=== PATIENT | female | born 1990 | race Caucasian/White ===

== ENCOUNTER 2016-09-23 14:23 | Inpatient (IN) | payer MEDICAID ==
[2016-09-23] MEDS ORDERED: Sodium Chloride 0.9% 10 ML Syringe FLUSH PRN (14:31)
[2016-09-23] MEDS ORDERED: Misoprostol 400 MCG (4 X 100 MCG TAB) RECTAL PRN (14:31)
[2016-09-23] MEDS ORDERED: Carboprost Tromethamine 250 MCG/1 ML Amp IM PRN (14:31)
[2016-09-23] MEDS ORDERED: Lidocaine 1% 30 ML SDV INJECT PRN (14:31)
[2016-09-23] MEDS ORDERED: Methylergonovine 0.2 MG/1 ML Amp IM PRN (14:31)
[2016-09-23] MEDS ORDERED: Ondansetron 4 MG/2 ML SDV IV PRN (14:31)
[2016-09-23] MEDS ORDERED: Lactated Ringers 500 ML IV ONE (14:31)
--- NOTE | 2016-09-23 15:22 | PCM.PREANE ---
Preanesthetic Assessment - Procedure Proposed Procedure: Term Labor for scheduled for vaginal delivery - Anesthesia/Transfusion/Family Hx Anesthesia History: Prior Anesthesia Without Reaction Family History of Anesthesia Reaction: No Transfusion History: No Prior Transfusion(s) Intubation History: Unknown - Review of Systems General: No Symptoms Pulmonary: No Symptoms Cardiovascular: No Symptoms Gastrointestinal: No symptoms Neurological: No Symptoms Other: Reports: None - Physical Assessment NPO Status Date: 09/23/16 NPO Status Time: 15:19 Pulse: 88 O2 Sat by Pulse Oximetry: 99 Respiratory Rate: 20 Blood Pressure: 128/76 Temperature: 97.6 F Height: 1.73 m Weight: 68.039 kg ASA Class: 2 Mental Status: Alert & Oriented x3 Dentition: Reports: Normal Dentition ROM/Head Extension: Full Lungs: Clear to auscultation Cardiovascular: Regular Rate, Regular Rhythm - Lab Values: Laboratory Last Values WBC 8.3 10^3/uL (5.0-10.0) 09/23/16 14:44 RBC 4.46 10^6/uL (4.2-5.4) 09/23/16 14:44 Hgb 11.0 g/dL (12.0-16.0) L 09/23/16 14:44 Hct 34.0 % (37.0-47.0) L 09/23/16 14:44 MCV 76.2 fL (80-100) L 09/23/16 14:44 MCH 24.7 pg (27.0-34.0) L 09/23/16 14:44 MCHC 32.4 g/dL (33.0-35.0) L 09/23/16 14:44 Plt Count 222 10^3/uL (150-450) 09/23/16 14:44 - Allergies Allergies/Adverse Reactions: Allergies Allergy/AdvReac Type Severity Reaction Status Date / Time ciprofloxacin Allergy Cannot Verified 09/20/16 19:20 Remember latex Allergy Rash Verified 09/20/16 19:20 - Blood Blood Available: No Product(s) Available: None - Acknowledgements Anesthesia Type Planned: Spinal Pt an Appropriate Candidate for the Planned Anesthesia: Yes Alternatives and Risks of Anesthesia Discussed w Pt/Guardian: Yes Pt/Guardian Understands and Agrees with Anesthesia Plan: Yes Additional Comments: R/B of Intrathecal spinal for labor pain management discussed with patient. Chart is reviewed. Patient is pain free now and will wait until the pain is no longer tolerated. Anesthesia consent is signed. PreAnesthesia Questionnaire - Past Health History Medical/Surgical History: Denies Medical/Surgical History HEENT History: Reports: None Cardiovascular History: Reports: None Respiratory History: Reports: None Gastrointestinal History: Reports: None Genitourinary History: Reports: UTI, Recurrent, Other (See Below) Other Genitourinary History: BV [employer]NAGER History: Reports: , Spontaneous Musculoskeletal History: Reports: None Neurological History: Reports: None Psychiatric History: Reports: None, Depression Endocrine/Metabolic History: Reports: None Hematologic History: Reports: Anemia Immunologic History: Reports: None Oncologic (Cancer) History: Reports: None Dermatologic History: Reports: None - Infectious Disease History Infectious Disease History: Reports: None Other Infectious Disease History: neg. cultures September 2014 - Past Surgical History Head Surgeries/Procedures: Reports: None HEENT Surgical History: Reports: Other (See Below) GI Surgical History: Reports: Cholecystectomy - SUBSTANCE USE Smoking Status *Q: Current Every Day Smoker Tobacco Use Within Last Twelve Months: Cigarettes Second Hand Smoke Exposure: No Days Per Week of Alcohol Use: 0 Recreational Drug Use History: No - HOME MEDS Home Medications: Home Meds Vit No.130/Iron/FA [ Vitamins] 1 each PO DAILY 03/26/15 [ History] - CURRENT (IN HOUSE) MEDS Current Meds: Current Medications Acetaminophen (Tylenol) 650 mg PO Q4H PRN PRN Reason: Pain (Mild 1-3) and fever Carboprost Tromethamine (Hemabate Ds) 250 mcg IM ASDIRECTED PRN PRN Reason: HEMORRHAGE Lactated Ringer's (Ringers, Lactated) 500 mls @ 500 mls/hr IV .BOLUS ONE Stop: 09/23/16 15:30 Lactated Ringer's (Ringers, Lactated) 1,000 mls @ 125 mls/hr IV ASDIRECTED JESS Lidocaine HCl (Xylocaine-Mpf 1%) 10 ml INJECT ASDIRECTED PRN PRN Reason: Perineal Repair Methylergonovine Maleate (Methergine) 0.2 mg IM ASDIRECTED PRN PRN Reason: Hemorrhage Misoprostol (Cytotec) 800 mcg RECTAL ASDIRECTED PRN PRN Reason: Hemorrhage Ondansetron HCl (Zofran) 4 mg IV Q4H PRN PRN Reason: Nausea/Vomiting Sodium Chloride (Saline Flush) 10 ml FLUSH ASDIRECTED PRN PRN Reason: Keep Vein Open
[2016-09-23] MEDS: Lactated Ringers 1,000 ML IV SCH ×2 (18:32→23:55)
[2016-09-23] MEDS: Oxytocin/Normal Saline 30 UNIT/500 ML BAG IV SCH (18:32)
[2016-09-23] MEDS ORDERED: fentaNYL 100 MCG/2 ML SDV ONE (22:32)
--- NOTE | 2016-09-23 23:00 | PCM.PRNOTE ---
- Free Text/Narrative Note: Patient Id'd chart reviewed in sitting positions sterile prep with betadine and draped. L3-4 space id'd, skin wheel with 1% Lidocaine. 24 G pencan spinal needle advanced into SA space via an 18 G introducer. negative blood/ parasthesia positive CSF. 6 mg hyperbaric Marcaine, 30 mcg fentanyl, 20 mcg sufentanyl and epinepherine wash injected into SA space positive swirlX2. BP / 125/72, [id number] 98% on RA, Temp 97.4 immediate pain relief is achieved
[2016-09-24] MEDS: Lactated Ringers 1,000 ML IV SCH (04:50)
[2016-09-24] MEDS ORDERED: Simethicone 80 MG Tab.Chew PO PRN (04:54)
[2016-09-24] MEDS ORDERED: Sodium Chloride 0.9% 10 ML Syringe FLUSH PRN (04:54)
[2016-09-24] MEDS ORDERED: Zolpidem 5 MG Tab PO PRN (04:54)
[2016-09-24] MEDS ORDERED: Benzocaine/Menthol 20%-0.5% Spray 56 GM Canister TOP PRN (04:54)
[2016-09-24] MEDS ORDERED: Oxytocin 10 Units/1 ML SDV IM PRN (04:54)
[2016-09-24] MEDS: Ibuprofen 800 MG Tab PO PRN ×2 (05:54→15:51)
[2016-09-24] MEDS: Oxytocin/Normal Saline 30 UNIT/500 ML BAG IV SCH (06:14)
[2016-09-24] MEDS: Prenatal Multivitamin with Calcium/Folic Acid/Iron Tab PO SCH (08:45)
[2016-09-24] MEDS: Docusate Sodium 100 MG Cap PO PRN (08:45)
[2016-09-24] MEDS: Acetaminophen 325 MG Tab PO PRN ×3 (08:46→17:45)
--- NOTE | 2016-09-24 10:38 | PN ---
DATE: 09/24/2016 SUBJECTIVE: The patient is comfortable, status post intrathecal. Pitocin is currently at 14 milliunits per minute. OBJECTIVE: heart tones have been in the 120s range with some minimal variability noted. Vaginal exam does reveal an acceleration. She is found to be 5.5 to 6 cm, 85% to 90% effaced, vertex suspected with caput noted. IUPC placed after discussion with the patient. ASSESSMENT/PLAN: Intrauterine at 41 weeks confirmed by 21 and 6/7 weeks ultrasound with risk factors of impaired glucose tolerance, single umbilical artery, history of maternal anemia in a G6, P4-1-0-1, now with protracted disorder of dilation, status post artificial rupture of membranes, Pitocin augmentation, and IUPC as above. We will continue to follow clinically and closely. Follow for MVUs. Did discuss plans with the patient. We will follow maternal status closely as well with heart tone monitoring. [facility] /[id number]
--- NOTE | 2016-09-24 10:43 | PCM.POSTAN ---
POST ANESTHESIA ASSESSMENT - MENTAL STATUS Mental Status: alert, oriented - VITAL SIGNS Pulse Rate: 68 SaO2: 99 Resp Rate: 18 Blood Pressure: 122/76 Temperature: 97.1 F - RESPIRATORY Respiratory Status: respiratory rate WNL, airway patent, O2 saturation stable - CARDIOVASCULAR CV Status: pulse rate WNL, blood pressure stable - GASTROINTESTINAL GI Status: no symptoms - PAIN Pain Score: 0 - POST OP HYDRATION Hydration Status: adequate & stable - OBSERVATIONS Free Text/Narrative:: Patient is sitting in bed. Recovered from her spinal narcotic and ambulating without any issue. Pleased with the outcome of anesthetic plan of care.
--- NOTE | 2016-09-24 10:49 | PN ---
DATE: 09/23/2016 SUBJECTIVE: The patient's contractions are getting stronger. She is on Pitocin at 12 milliunits per minute. OBJECTIVE: heart tones in the 130s range, felt to be reassuring. Tocometer reveals contractions every 2-4 minutes. Vaginal exam reveals her to be 5 cm, 85% to 90% effaced, -2 station, vertex suspected. ASSESSMENT AND PLAN: Intrauterine at 41 weeks, confirmed with 21- 6/7th weeks' ultrasound, with single umbilical artery, impaired glucose tolerance, maternal anemia. Now, status post NST, artificial rupture of membranes, Pitocin augmentation. Requesting something for pain. We will get her the intrathecal, and follow clinically and closely thereafter. The patient understands and agrees with the above treatment plan. [facility] /[id number]
--- NOTE | 2016-09-24 10:54 | PN ---
DATE: 09/23/2016 Patient's history and physical has been done through [facility]. Please see scanned notes within the chart in regard to this. For this, records were called, reviewed, and supplemented by patient history as well. REVIEW OF SYSTEMS: Otherwise reviewed and felt to be noncontributory as well. Please see EPIC notes for further details. [facility] /[id number]
[2016-09-24] MEDS ORDERED: fentaNYL 100 MCG/2 ML SDV ITHECAL ONE (12:38)
--- NOTE | 2016-09-24 13:26 | DEL ---
DATE: 09/24/2016 PREOPERATIVE DIAGNOSES: 1. Intrauterine 41-1/7th weeks, confirmed with 21-6/7th-week ultrasound. 2. Impaired glucose tolerance. 3. Single umbilical artery. 4. Maternal anemia with hemoglobin of 11 upon admission. 5. History of LEEP. 6. History of depression. 7. 6, para 4-0-1-4. 8. Meconium-stained fluid first noted in the second stage of labor. POSTOPERATIVE DIAGNOSES: 1. Intrauterine 41-1/7th weeks, confirmed with 21-6/7th-week ultrasound-delivered. 2. Impaired glucose tolerance. 3. Single umbilical artery. 4. Maternal anemia with hemoglobin of 11 upon admission. 5. History of LEEP. 6. History of depression. 7. 6, para 4-0-1-4. 8. Meconium-stained fluid, first noted in the second stage of labor. 9. REESE presentation. 10.Second-degree perineal laceration-repaired. PROCEDURES PERFORMED: NST, artificial rupture of membranes, Pitocin augmentation, IUPC on 09/23/2016, with continued Pitocin augmentation through 09/24/2016, with spontaneous vaginal delivery on 09/24/2016. Second-degree perineal laceration-repaired. ANESTHESIA/ANALGESIA: The patient did receive an intrathecal in the first stage of labor. ESTIMATED BLOOD LOSS: 400 mL. FINDINGS: Female, scores of 8 and 9, weight pending. SUMMARY OF EVENTS: The patient is a 25-year-old, G6, P4-0-1-4 intrauterine at 41 weeks upon admission confirmed with 21-6/7th-week ultrasound, which was on 09/23/2016, who underwent the above procedures. She had a protracted disorder of dilation, required IUPC placement after she had her intrathecal, continued with Pitocin augmentation, she was subsequently found to be complete, and I was called to the room. I donned sterile gown and gloves and subsequently with the patient pushing with contractions, vertex was delivered in the REESE presentation, followed by anterior and posterior shoulder as well as rest of the infant without difficulty. Meconium-stained fluid was noted during this time. Vigorous cry was noted. Mouth and nares were suctioned. Cord was doubly clamped and cut. was resuscitated on mother's abdomen/chest. Then, approximately 10 mL of cord blood was obtained for labs. Placenta then delivered with gentle cord traction and fundal massage within 5 to 10 minutes. Single umbilical artery was noted. Perineum, vagina, and perirectal areas were examined and noted to have a second-degree perineal laceration that was anesthetized in the usual fashion using 1% lidocaine without epinephrine and repaired in the usual fashion using 3-0 Vicryl. Mother and infant are currently stable at the time of dictation. [facility] /[id number]
--- NOTE | 2016-09-24 13:29 | OBOUT ---
DATE: 09/23/2016 DATE AND TIME OF NST: Date: 09/23/2016. Time: 1451 hours to 1511 hours. REASON FOR NST: 1. Intrauterine at 41 weeks confirmed by 21-6/7th-week ultrasound. 2. Impaired glucose tolerance. 3. Single umbilical artery. 4. Maternal anemia. 5. History of LEEP. 6. History of depression. 7. G6, P4-0-1-4. NST INTERPRETATION: During this time period, heart tone baseline is approximately 135, and there are at least two 15 x 15 beat per minute accelerations, making this strip reactive. It is also noted to be reassuring. Tocometer reveals occasional contractions, none felt by patient. PHYSICAL EXAMINATION: Vital Signs: Blood pressure 116/82, heart rate 116 to 129, O2 saturations 98%, temperature 98. ASSESSMENT: 1. NST-reactive and reassuring. 2. Tocometer with contractions, none felt by patient. Shortly after NST was performed, artificial rupture of membranes was done, noted to have some minimal clear fluid with bloody show. She was found to be 3 cm, 75% effaced, -1 to -2 station, vertex suspected. PLAN: We will continue to follow clinically and closely. Consider Pitocin augmentation as needed. The patient refuses vaccines and medicines for her baby. Did discuss with her in detail the risks associated with her decision. We will have her sign against medical advice form or equivalent and follow closely. I did discuss the potential risk for serious infection, , bleeding otherwise with the patient. [facility] /[id number]
[2016-09-24] MEDS: Acetaminophen/oxyCODONE 325-5 MG Tab PO PRN (21:14)
[2016-09-25] MEDS: Ibuprofen 800 MG Tab PO PRN ×2 (00:10→08:47)
[2016-09-25] MEDS: Acetaminophen/oxyCODONE 325-5 MG Tab PO PRN ×2 (04:40→11:13)
[2016-09-25] MEDS: Prenatal Multivitamin with Calcium/Folic Acid/Iron Tab PO SCH (08:47)
[2016-09-25] MEDS: Docusate Sodium 100 MG Cap PO PRN (08:47)
[2016-09-25 09:29] VITALS: BP 109/75
--- NOTE | 2016-09-25 11:29 | DISCH ---
ADMIT DIAGNOSES: 1. Intrauterine 41 weeks, confirmed with 21-6/7th-week ultrasound. 2. Impaired glucose tolerance. 3. Single umbilical artery. 4. Maternal anemia. 5. Group B streptococcus negative. 6. History of LEEP. 7. History of depression. 8. G6, P4-0-1-4. DISCHARGE DIAGNOSES: 1. Intrauterine 41-1/7th weeks, confirmed with 21-6/7th-week ultrasound-delivered. 2. Impaired glucose tolerance. 3. Single umbilical artery. 4. Maternal anemia. 5. Group B streptococcus negative. 6. History of LEEP. 7. History of depression. 8. G6, P4-0-1-4. 9. Meconium-stained fluid noted in second stage of labor. 10.REESE presentation. 11.Second-degree perineal laceration-repaired. 12.Protracted disorder of dilation. PROCEDURE PERFORMED: NST, artificial rupture membranes, Pitocin augmentation, and IUPC on 09/23/2016, with Pitocin continuing into 09/24/2016, with spontaneous vaginal delivery with second-degree perineal laceration repaired on that day by Dr. Christine. HISTORY OF PRESENT ILLNESS: Please see H and P. SUMMARY OF HOSPITAL COURSE: The patient was admitted on the above date with the above diagnoses and underwent the above procedures, then went on to have a spontaneous vaginal delivery yielding a female with scores of 8 and 9, weighing 7 pounds 14 ounces (3570 g )with second-degree perineal laceration- repaired. Please see delivery note for further details. day #1, date of discharge, the patient is tolerating p.o., ambulating, urinating, passing flatus, and requesting discharge. PHYSICAL EXAMINATION: Vital Signs: Last set of vitals updated and listed in the chart. Temperature 99.1, heart rate 77, blood pressure 122/76, respiratory rate 18. Lungs: Clear to auscultation bilaterally. Heart: S1 and S2. Regular rate and rhythm. Lungs are clear to auscultation. Heart: S1-S2, regular rate and rhythm. Abdomen: Firm uterus at approximately -1 below umbilicus. Extremities: No peripheral edema. No calf pain. LABORATORY DATA: The patient deferred discharge labs. CONDITION ON DISCHARGE COMPARED TO CONDITION ON ADMISSION: Improved. DISCHARGE INSTRUCTIONS: 1. Diet as tolerated. 2. Activity, no lifting more than 20 pounds. No sit-ups, straining and pelvic rest for next 6 weeks with immediate return to fertility discussed with the patient. 3. Reasons to return or go to the emergency room were discussed with the patient including, but not limited to, temperature greater than 100.4, foul- smelling discharge, red, hot, tender breasts, or increased vaginal bleeding. DISCHARGE MEDICATIONS: 1. [id number] ibuprofen for pain. 2. vitamins x 4 to 6 weeks. 3. Did discuss iron supplementation if need be because of her history of anemia as well for 6 weeks. FOLLOWUP: Follow up 6 weeks for visit. I did discuss the importance of followup with her as well as her and ramifications of not doing so. An appointment for infant will be made tomorrow. [facility] /[id number]
== END 2016-09-25 15:15 | disposition home or self-care (01) | DRG 775 ==
LOC: DL.OBCHECK 14:23 → UNDOADMOB 14:31 → DL.OB 14:31 → INTOOBSV 14:31 → DL.OB 09-24 04:28 → OBSVTOIN 09-24 04:29 → INTOOBSV 09-24 04:29
PROVIDERS: ADMIT Family Medicine; ATTEND Family Medicine
PROC: 3E033VJ Introduction of Other Hormone into Peripheral Vein, Percutaneous Approach (ICD-10-PCS; principal; 2016-09-24)
PROC: 10E0XZZ Delivery of Products of Conception, External Approach (ICD-10-PCS; principal; 2016-09-24)
PROC: 00HU33Z Insertion of Infusion Device into Spinal Canal, Percutaneous Approach (ICD-10-PCS; principal; 2016-09-24)
PROC: 10907ZC Drainage of Amniotic Fluid, Therapeutic from Products of Conception, Via Natural or Artificial Opening (ICD-10-PCS; principal; 2016-09-24)
PROC: 0KQM0ZZ Repair Perineum Muscle, Open Approach (ICD-10-PCS; principal; 2016-09-24)
DX: O77.0 Labor and delivery complicated by meconium in amniotic fluid (principal); O70.1 Second degree perineal laceration during delivery; O62.0 Primary inadequate contractions; Z3A.41 41 weeks gestation of pregnancy; Z37.0 Single live birth; O99.810 Abnormal glucose complicating pregnancy; O99.019 Anemia complicating pregnancy, unspecified trimester; O99.340 Other mental disorders complicating pregnancy, unspecified trimester; F32.9 Major depressive disorder, single episode, unspecified; O36.8990 Maternal care for other specified fetal problems, unspecified trimester, not applicable or unspecified; Z88.1 Allergy status to other antibiotic agents; Z91.040 Latex allergy status
CPT/HCPCS: 01967; 36415; 85027; A9270-GY; J2405; J2590; J3010; J7120